=== PATIENT | male | born 1965 | race Caucasian/White ===

== ENCOUNTER → 2020-09-24 08:19 | Outpatient (CLI) | payer BC, SELFPAY ==
--- NOTE | 2020-09-24 08:27 | CT_ITS ---
PROCEDURE: CT LUNG SCREENING CLINICAL INDICATION: H/O NICOTINE DEPENDENCE Current smoker 74 pack year smoking history COMPARISON: No exams were available for comparison TECHNIQUE: The exam was performed on a GE Light Speed [address] scanner using 2.90 mGy CTDI. A low dose helical CT CHEST was performed on a multi-detector scanner. All CT scans at the facility use one or more dose reduction, viz: automated exposure control, ma/kV adjustment per patient size (including targeted exams where dose is matched to indication, i.e. head), or iterative reconstruction technique. The LDCT was performed in a facility that meets the criteria for the screening program. Data regarding this exam was submitted to ACR which is an approved registry. The order for this exam indicates that it came as a result of a lung cancer screening counseling shard decision-making visit that included all the elements required of such a visit including smoking cessation. The radiologist interpreting this exam meets the CMS criteria for the LDCT lung cancer screening program. The exam is reported using the Lung-RADS classification scale and reported to the ACR registry. NOTE: This study was performed for the specific purposes of lung cancer screening and is not an alternative to diagnostic chest CT. RADIATION DOSE: CTDI vol(CT dose Index-volume) = 2.90mG DLP (Dose Length Product) = 120.63 mGcm FINDINGS: COPD with paraseptal emphysema and scattered areas of scarring. 4 mm ground-glass opacity central aspect right upper lobe image 20. 4 mm ground-glass opacity left upper lobe centrally image 16. Mild diffuse bronchial thickening. Calcified granuloma left lower lobe OTHER FINDINGS: . Scattered small axillary nodes. Coronary artery calcifications. Right adrenal adenoma measuring 2 cm. There is a subcutaneous oval soft tissue density measuring 14 mm 6 cm inferior to the tip of the xiphoid and may be due to a sebaceous cyst IMPRESSION: Lung-RADS Category 3 Probably Benign Follow-up: [address] Chest with contrast. Dictated by: Landry Meier MD 09/27/2020 19:42 Landry Meier MD in [place] 09/27/2020 19:42
== END ==
PROVIDERS: PCP Family Medicine; Visit Provider Family Medicine
DX: Z87.891 Personal history of nicotine dependence (principal); Z12.2 Encounter for screening for malignant neoplasm of respiratory organs
CPT/HCPCS: 71271

== ENCOUNTER → 2020-10-16 12:39 | Outpatient (CLI) | payer BC, SELFPAY ==
[2020-10-16 13:00] VITALS: PULSE 68; PULSE 71
== END ==
PROVIDERS: PCP Family Medicine; Visit Provider Family Medicine
DX: R06.02 Shortness of breath (principal)
CPT/HCPCS: 94060; 94640

== ENCOUNTER → 2021-01-07 15:04 | Outpatient (CLI) | payer BC, SELFPAY | PROVIDERS: Visit Provider Internal Medicine Gastroenterology | DX: Z01.812 Encounter for preprocedural laboratory examination (principal); Z11.52 Encounter for screening for COVID-19; Z12.11 Encounter for screening for malignant neoplasm of colon | CPT/HCPCS: U0003 ==

== ENCOUNTER 2021-01-09 08:55 | Day surgery (SDC) | payer BC, SELFPAY ==
[2021-01-06 13:08] VITALS: BMI 19.2
[2021-01-09] VITALS (7 sets, daily range): BP systolic 140–175; BP diastolic 83–92; PULSE 72–83; RESP 16–18; TEMP 36.3–36.9; O2SAT 94–97
--- NOTE | 2021-01-09 10:02 | P.PN_ITS ---
[facility] Anesthesia Checklist - Structural Data Admitted From: Home Planned Operative Procedure/s: colonoscopy Consent for Planned Operative Procedure(s) Verified: Yes - Airway Assessment C-Spine Mobility Assessed: Yes TMJ Mobility Assessed: Yes Dentition: Good Dentition - Neurological Assessment Level of Consciousness: Awake, Alert, Appropriate - Anesthesia Plan Anesthesia Risk discussed: Yes Anesthesia Plan: Verified ASA Class: II Anesthesia Type: MAC [facility] History I have reviewed the patient's past medical history: Yes Medical History: Denies:: Cancer, Diabetes Mellitus Type 1, Diabetes Mellitus Type 2, Internal Pacemaker, MRSA, Seizures *Have you ever received a pneumonia vaccine?: No *Have you received a flu vaccine this season?: Yes Anesthesia experience/problems:: none Other Surgeries: No: Pacemaker Amputation: No Fractures: No - *Social History Last grade of school completed: 11th or 12th Smoking Status: Current every day smoker Tobacco Type: cigarettes # Packs/Day (cigarettes): 1 Alcohol Intake: never Substance Use Type: denies use *Occupational Status:: retired Housing: house Household Members: spouse *Travel in the last 8 weeks: None Family Hx:: No significant family history
--- NOTE | 2021-01-09 10:33 | HMH.PROC ---
[facility] Procedure Note Procedure Note:: Colonoscopy Procedure Report: Colonoscopy with cold snare polypectomy Endoscopist: Dakotah Robles II, MD Referring physician: Lambert Steel MD Date of Procedure: January 09, 2021 Equipment: Olympus 190 variable stiffness pediatric colonoscope Sedation: MAC sedation Indication: Mr. Sow is a 55-year-old gentleman who is here for diagnostic colonoscopy secondary to abnormal weight loss. The patient does state that he was 155 pounds in June 2020. More recently, he was 128 pounds. He also has had some increased abdominal gas and growling . He has had some change in bowel habits and has changed from one bowel movement daily to 2 or 3 bowel movements. He sometimes feels incomplete bowel evacuation with soft stools. His recent hemoglobin and hematocrit were 15.4 and 45.4. He is a 2 pack a day smoker for more than 20 years. He did have a colonoscopy in September 2015 and had 2 small polyps (tubular adenoma x1/hyperplastic polyp x1) removed (Dr. João Lincoln M.D.). The patient did have a CT scan of the chest on September 24, 2020. There was COPD with paraseptal emphysema and scattered areas of pulmonary scarring/fibrosis. There were a couple of diminutive opacities in the right and left upper lobes. There was mild diffuse bronchial thickening. There were some small scattered axillary nodes and some coronary artery calcifications. The patient reports no abdominal pain. He reports no rectal bleeding or family history of colon cancer. He has normal appetite. Procedure: Prior to the procedure, a history and physical exam was performed, and patient's medications and allergies were reviewed. The risks, benefits and alternatives of the sedation and procedure were discussed with the patient. All questions were answered and informed consent was obtained. The patient was brought to the procedure room. Patient identification and proposed procedure were verified by the physician and the nurse. The patient was placed in a left lateral decubitus position and the scope was passed under direct vision. Throughout the procedure, the patient's blood pressure, pulse, and oxygen saturations were monitored continuously. The colonoscopy was accomplished without difficulty. The patient tolerated the procedure well. Findings: On digital rectal examination there was normal rectal tone. There were no external hemorrhoids. The colonoscope was introduced through the anal canal to the rectum and advanced to the cecum. The ileocecal valve and appendiceal orifice were identified. The scope was advanced a short distance into the ileum which appeared grossly normal. The scope was then withdrawn into the colon. There was a single 4 mm polyp in the descending colon removed via cold snare polypectomy. The remaining cecum, ascending, transverse, descending, sigmoid and rectum were grossly normal. There were no other mucosal abnormalities identified. Upon retroflexion within the rectum there were grade 1 internal hemorrhoids.The preparation was excellent throughout with [place] Preparation Score of 9. The cecal time was 12 minutes. Impression: 1. Diminutive descending colon polyp (4 mm) 2. Grade 1 internal hemorrhoids Plan: I will follow up the polyp histology. There was nothing to explain the patient's marked weight loss. The patient does have COPD/emphysema. There are a category of patients that develop pulmonary cachexia despite not having oxygen requirements. The metabolism behind heavy tobacco smoking and acute weight loss is documented. I would still look for any other organic cause of weight loss.
== END 2021-01-09 11:35 | disposition home or self-care (01) ==
LOC: OUTP 08:56
PROVIDERS: PCP Family Medicine; Visit Provider Internal Medicine Gastroenterology
PROC: 0DJD8ZZ Inspection of Lower Intestinal Tract, Via Natural or Artificial Opening Endoscopic (ICD-10-PCS; CPT 45378; principal; 2021-01-09 10:00)
DX: R63.4 Abnormal weight loss (principal); Z68.1 Body mass index [BMI] 19.9 or less, adult; R19.4 Change in bowel habit; K63.5 Polyp of colon; K64.0 First degree hemorrhoids; Z86.010 Personal history of colon polyps; Z72.0 Tobacco use
CPT/HCPCS: 45385

== ENCOUNTER → 2021-07-01 08:26 | Outpatient (CLI) | payer BC, SELFPAY ==
--- NOTE | 2021-07-01 08:35 | XR_ITS ---
FINAL REPORT CLINICAL HISTORY: right shoulder pain FINDINGS: RIGHT SHOULDER Three views demonstrate no acute fracture or dislocation. There is mild acromioclavicular joint degenerative change. The visualized bony structures are well aligned. No soft tissue abnormality is seen. IMPRESSION: Mild degenerative change. Reviewed, Interpreted and Dictated by Blake Russell III, MD Transcribed by Enma Burgos Authenticated by Blake Russell III, MD on 07/01/2021 09:55:32 AM [facility]
== END ==
PROVIDERS: PCP Family Medicine; Visit Provider Orthopaedic Surgery
DX: M25.511 Pain in right shoulder (principal)
CPT/HCPCS: 73030

== ENCOUNTER → 2021-07-13 07:09 | Outpatient (CLI) | payer BC, SELFPAY ==
--- NOTE | 2021-07-13 07:31 | MR_ITS ---
FINAL REPORT CLINICAL HISTORY: shoulder pain, limited rom FINDINGS: Multiplanar MR imaging of the right shoulder was performed without contrast. There is a defect in the distal supraspinatus tendon with tendon retraction of approximately 1.7 cm. Interspace tendon is intact. There are moderate hypertrophic changes of the acromioclavicular joint. There is fluid within the subacromial/subdeltoid bursa. There is edema in the distal clavicle and acromion concerning for underlying ligamentous instability. The glenoid labrum is intact. The long head of the biceps tendon is intact. There is no evidence of fracture, bone bruise or marrow edema. A small joint effusion is identified. The musculature is intact. There is no evidence of soft tissue mass. IMPRESSION: Full-thickness tear of the distal supraspinatus tendon with proximal tendon retraction. Hypertrophic changes of the A.C. joint with underlying marrow edema in the distal clavicle and acromion concerning for underlying ligamentous instability. Reviewed, Interpreted and Dictated by Moshe Donato MD Transcribed by Noa Gonzalez Authenticated by Moshe Donato MD on 07/13/2021 09:58:00 AM [facility]
== END ==
PROVIDERS: PCP Family Medicine; Visit Provider Orthopaedic Surgery
DX: M25.511 Pain in right shoulder (principal)
CPT/HCPCS: 73221

== ENCOUNTER 2025-06-10 12:48 | Outpatient (CLI) | payer BC, SELFPAY ==
[2025-06-10 16:45] LABS: Hematocrit 47.1 % (42.0-52.0); Hemoglobin 16.3 g/dL (14.1-18.0); Immature Granulocytes % 0.4 %; Mean Corpuscular HGB Conc 34.6 g/dL (31.8-35.4); Mean Corpuscular Hemoglobin 33.3 pg (27.0-31.2); Mean Corpuscular Volume 96.3 fl (80-94); Nucleated Red Blood Cells % 0 %; Platelet Count 330 K/mm3 (142-424); Red Blood Count 4.89 M/mm3 (4.60-6.20); Red Cell Distribution Width-SD 46.9 fL; White Blood Count 8.5 K/mm3 (4.8-10.8)
[2025-06-10 17:35] LABS: Alanine Aminotransferase 24 U/L (12-78); Albumin Level 5.0 g/dl (3.5-5.0); Albumin/Globulin Ratio 1.8 (1.1-1.8); Alkaline Phosphatase 70 U/L (38-126); Anion Gap 13.8 mEq/L (5-15); Aspartate Amino Transferase 28 U/L (17-59); Bilirubin,Total 0.7 mg/dl (0.2-1.3); Blood Urea Nitrogen 17 mg/dl (9-20); Calcium 9.5 mg/dl (8.4-10.2); Carbon Dioxide 24 mmol/L (22.0-30.0); Chloride 104 mmol/L (98-107); Cholesterol 231 mg/dl (140-200); Creatinine,Serum 0.70 mg/dl (0.66-1.25); Estimated Glomerular Filt Rate 115 ml/min (>60); GFR (African American) 139 ML/MIN (>60); Globulin 2.8 g/dL (1.3-3.2); Glucose 87 mg/dl (74-100); Potassium 4.8 mmoL/L (3.5-5.1); Sodium 137 mmol/L (136-145); Total Protein,Serum 7.8 g/dl (6.3-8.2); Triglycerides 54 mg/dl (30-150)
[2025-06-10 17:51] LABS: Free T4 (Free Thyroxine) 0.81 ng/dl (0.78-2.19)
[2025-06-10 17:57] LABS: HDL Cholesterol 121 mg/dl (40-60)
[2025-06-10 18:06] LABS: Thyroid Stimulating Hormone 0.68 uIU/mL (0.465-4.68)
--- OUTSIDE RECORDS SUMMARY | 2025-06-11 13:11 | XMS_ITS | Clinical Summary ---
Author Organization [facility] Address [address] [place] [id number] Phone [email or web address] Care Team Providers Care Sql Consultant Name Role Phone Unavailable Primary Care Provider Unavailabl e Allergies No known active allergies Medications No known medications Active Problems Problem Noted Date Diagnosed Date Alcohol abuse 05/28/2019 Tobacco use disorder 04/10/2010 Overview (11/16/2017): Problem with sexual function 12/26/2007 Overview (11/16/2017): Resolved Problems Problem Noted Date Diagnosed Date Resolved Date Examination for medicolegal reason 07/20/2011 05/01/2018 Overview (11/16/2017): Screening for hypertension 03/17/2011 1 07/01/2017 Overview (11/16/2017): Other ankle sprain and strain 05/23/2009 05/01/2018 Overview (11/16/2017): Routine general medical exam ination at a health care facility 04/30/2009 05/01/2018 Overview (11/16/2017): Health examination of defined subpopulation 05/07/2008 05/01/2018 Overview (11/16/2017): Other examination of ears and hearing 05/04/2007 05/01/2018 Overview (11/16/2017): Social History Tobacco Use Types Packs/Day Years Used Date Smoking Tobacco: Every Day Cigarettes 1.5 30 Smokeless Tobacco: Never Tobacco Cessation:Counseling Given: No Alcohol Use Standard Drinks/Week Comments Yes 0 (1 standard drink = 0.6 oz pur e alcohol) Intimate Partner Violence Answer Date R ecorded Insults You Not on file 09/28/2020 Threatens You Not on file 09/28/2020 Screams at You Not on file 09/28/2020 Physically Hurt Not on file 09/28/2020 Intimate Partner Violence Score Not on file 09/28/2020 Alcohol Use Answer Date Recorded Alcohol Use Status Yes 09/28/2020 Stress Answer Date Recorded Stress in your Life Low 06/13/2024 Dealing with Stress Very effective 06/13/2024 Physical Activity Answer Date Recorded Moderate Physical Activity Not on file 06/13 Vigorous Physical Activity Never 06/13 Time Spent Sitting 6 to 8 hours 06/13/2024 Sex and Gender Information Value Date Recorded Sex Assigned at Not on file Legal Sex Male 9:49 AM CDT Gender Identity Not on file Sexual Orientation Not on file Last Filed Vital Signs Vital Sign Reading Time Taken Comments Blood Pressure 132/88 07/02/2020 1:18 PM EST Pulse 83 07/02/2020 1:18 PM EST Temperature 36.9 C (98.4 F) 07/02/2020 1:18 PM EST Respiratory Rate 14 05/01/2018 8:53 AM EST Oxygen Saturation 95% 07/02/2020 1:18 PM EST Inhaled Oxygen Concentration - - Weight 70 kg (154 lb 4.8 oz) 07/02/2020 1:18 PM EST Height 175.3 cm (5' 9 ) 07/02/2020 1:18 PM EST Body Mass Index 22.79 07/02/2020 1:18 PM EST Plan of Treatment Health Maintenance Due Date Last Done Comments CT Colonography 1964 DNA Cologuard 1964 Dental Cleaning/Exam 1964 FIT or FOBT Test 1964 HIV Screening 1964 Sigmoidoscopy 1964 Hep B Infection Screening - Triple Screen 1982 Pneumococcal: 50+ Years (1 of 2 - PCV) 1983 Tetanus Diphtheria and Pertussis Immunization (1 - Tdap) 1983 Zoster Immunization (1 of 2) 2014 Annual Preventive Exam 07/02/2021 , 05/28/2019, 05/01/2018, Additional history exists Covid-19 Immunization (2024- season) 2025 Influenza Immunization (#1) 2025 Colonoscopy 10/12/2025 10/13/2015 Colorectal Cancer Screening Combo 10/12/2025 Hepatitis C Screening Completed 06/25/2020, 018 HIB Immunization Aged Out No longer e ligible based on patient's age to complete this topic HPV Immunization Aged Out No longer e ligible based on patient's age to complete this topic Hepatitis A Immunization Aged Out No longer eligible based on patient's age to complete this topic Hepatitis B Immunization Aged Out No longer eligible based on patient's age to complete this topic Polio Immunization Aged Out No longer eligible based on patient's age to complete this topic Procedures Procedure Name Priority Date/Time Associated Diagnosis Comments HEPATITIS C ANTIBODY WITH REFLEX TO HCV, RNA, QUANTITATIVE, REAL-TIME PCR Routine 06/25/2020 7:05 AM EST Encounter for laboratory examination from Last 3 Months or Most Recently Relevant to Health Maintenance Results * Hepatitis C Antibody with Reflex to HCV, RNA, Quantitative, Real-Time PCR- [place] (87049) (06/25/2020 7:05 AM EST) Hepatitis C Antibody NON-REACTI VE NON-REACT COLETTE [facility] Signal/Cutoff 0.24 <1.00 [facility] Comment: HCV antibody was non-reactive. There is no laboratory evidence of HCV infection. In most cases, no further action is required. However, if recent HCV exposure is suspected, a test for HCV RNA (test code 19648) is suggested. For additional information please refer to http://education.[employer].DataVote/faq/PHG79b3 (This link is being provided for informational/ educational purposes only.) Blood (Blood, Venous) 06/25/2020 7:05 AM EST 06/26/2020 5:56 AM EST Amador Manuel MD LAB BLOOD ORDERABLES Final R esult [facility] [address] [place] [id number] from Last 3 Months or Most Recently Relevant to Health Maintenance Insurance [address] [address] [place] [address]
== END 2025-06-10 23:59 | disposition home or self-care (01) ==
LOC: LAB.DROPOF 06-11 13:09
PROVIDERS: PCP Student in an Organized Health Care Education/Training Program; Visit Provider Student in an Organized Health Care Education/Training Program
DX: R00.2 Palpitations (principal); I10 Essential (primary) hypertension; Z72.0 Tobacco use
CPT/HCPCS: 80053; 80061; 84439; 84443; 85025